=== PATIENT | female | born 1970 | race Caucasian/White ===

== ENCOUNTER 2018-06-06 17:54 | Emergency (ER) | payer BC ==
[~2018-06-06] VITALS: Ht 167.6 cm; Wt 77.1 kg
[~2018-06-06 17:54] MED LIST: IBUPROFEN 600600 M1 PO; NOHOMEMEDICATIONS; NORCO 5-325 TA1 EACH PO; NORFLEX100 MG PO; PHENERGAN 25 MG25 M1 PO; PHENERGAN25 MG RE; PROVENTIL HFA6.7 G1 INH; ZPAK PO
[2018-06-06] MEDS ORDERED: IBUPROFEN 600600 M1 PO (18:48)
[2018-06-06 18:56] VITALS: BP 124/85
== END 2018-06-06 18:56 | disposition home or self-care (01) ==
LOC: ER 17:54
DX: S63.591A Other specified sprain of right wrist, initial encounter (principal); W00.0XXA Fall on same level due to ice and snow, initial encounter; Y93.89 Activity, other specified; Y92.89 Other specified places as the place of occurrence of the external cause; Y99.8 Other external cause status; F17.210 Nicotine dependence, cigarettes, uncomplicated; Z88.0 Allergy status to penicillin; Z88.8 Allergy status to other drugs, medicaments and biological substances; Z91.041 Radiographic dye allergy status

== ENCOUNTER 2018-12-06 07:48 | Day surgery (SDC) | payer BC ==
[~2018-12-06] VITALS: Ht 167.6 cm; Wt 85.3 kg
[~2018-12-06 07:48] MED LIST changes: +PENNSAID112 GM TOP; +TRAMADOL 50 MG50 MG PO; +VIMOVO 500-201 EACH PO
[2018-12-06 08:21] VITALS: BP 98/66
[2018-12-06] MEDS ORDERED: NORCO 5-325 TA1 EAC1 PO (11:12)
[2018-12-06 11:33] VITALS: BP 98/66
--- NOTE | 2018-12-10 08:25 | O ---
[facility] [address] OPERATIVE REPORT Name: LELO NINO Room #: DEP [facility] Maura#: [id number] Admission: 12/06/18 Attend Phys: Luis Caruso MD Discharge: 12/06/18 Date of : 72 Report #: [id number] THIS REPORT FOR: //name// CC: Oswald Caruso DATE OF SERVICE: 12/06/2018 PREOPERATIVE DIAGNOSIS: Left knee pain. POSTOPERATIVE DIAGNOSES: 1. 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 2. Grade 3 chondromalacia of the patella. 3. Synovitis, left knee. PROCEDURE: 1. Left knee arthroscopy with chondroplasty, medial femoral condyle and possible chondroplasty, patella. 2. Limited synovectomy. SURGEON: Luis Caruso MD ANESTHESIA: LMA. COMPLICATIONS: None. SPECIMENS: None. TOURNIQUET TIME: 15 minutes. CONDITION UPON LEAVING THE OPERATING ROOM: Stable. INDICATIONS FOR PROCEDURE: The patient is a 48-year-old female who has had left knee pain for several months. She had failed conservative measures for this. She had an MRI scan that demonstrated only chondromalacia of her patella without meniscal tear. However, she had failed conservative measures and she elected for diagnostic left knee arthroscopy with debridement as needed. DESCRIPTION OF PROCEDURE: Risks, benefits, alternatives, complications were discussed in detail with the patient including but not limited to risk of anesthesia; risk of damage to nerves, arteries, blood vessels; risk for infection, bleeding; risk for continued knee pain, need for reoperation. Informed consent was obtained from the patient. Left knee was appropriately marked in the preoperative holding area. IV clindamycin was given for preoperative antibiotics. She was brought to the operating room and placed in supine position on operating room table. LMA anesthesia was induced without [facility] [address] [place] [address] OPERATIVE REPORT Name: NINOLELO A Room #: DEP [facility] Marua#: [id number] Admission: 12/06/18 Attend Phys: Luis Caruso MD Discharge: 12/06/18 Date of : 72 Report #: [id number] complication. Tourniquet was placed on the left thigh. Left lower extremity was prepped and draped in normal sterile fashion. Timeout was performed properly identifying the patient and procedure as well as the instrumentation. All in the operating room were in agreement. Left lower extremity was exsanguinated and tourniquet was inflated. Tourniquet time was 18 minutes. Standard anterolateral portal was established with 11 blade through the skin. Arthroscope was introduced into the patellofemoral compartment, diagnostic arthroscopy was undertaken. Patellofemoral compartment was visualized and found to have a small amount of grade 3 chondromalacia of the medial patellar facet. There was extensive synovitis of the patellar fat pad. Medial gutter was visualized and found to be without pathology. Medial compartment was visualized and medial portal was established under arthroscopic visualization. Probe was introduced into the medial compartment. There was noted to be an intact medial meniscus. There was grade 3 chondromalacia in the medial femoral condyle and chondroplasty of this area was performed. Notch was visualized and there was extensive synovitis and this was removed with an oscillating shaver. ACL was visualized and found to be intact. Lateral compartment was visualized and found to have an intact lateral meniscus. Scope was placed back in the patellofemoral compartment and the chondroplasty of the patella was performed. After this, all fluid was allowed to drain from the knee. The knee was injected with 10 mL of 0.5% Marcaine. Incision was closed with 3-0 nylon. Soft dressing of Adaptic, 4 x 4, Webril, Rick wrap were applied. The patient tolerated this procedure well and went to recovery room under care of anesthesia postoperatively. <ELECTRONICALLY SIGNED> By: Luis Caruso MD 12/10/18 0825 [id number] 1211 Luis Caruso MD /nt
== END 2018-12-06 12:45 | disposition home or self-care (01) ==
LOC: OR 07:48 → TBA 07:50 → OR 11:19
DX: M94.262 Chondromalacia, left knee (principal); M65.862 Other synovitis and tenosynovitis, left lower leg; F17.210 Nicotine dependence, cigarettes, uncomplicated; Z87.442 Personal history of urinary calculi; Z85.828 Personal history of other malignant neoplasm of skin; Z90.710 Acquired absence of both cervix and uterus; Z98.890 Other specified postprocedural states; Z79.899 Other long term (current) drug therapy; Z88.0 Allergy status to penicillin; Z91.041 Radiographic dye allergy status; Z88.8 Allergy status to other drugs, medicaments and biological substances
CPT/HCPCS: 50010; 50101; 50405; 51038; 54170; 56526; 57103; 57180; 62110; 62900; 70005